=== PATIENT | male | born 1995 | race African-American/Black ===

== ENCOUNTER 2024-11-22 16:26 | Emergency (ER) | payer SELFPAY ==
[~2024-11-22] VITALS: Ht 172.7 cm; Wt 100.0 kg
[2024-11-22 16:40] VITALS: O2SAT 100
[2024-11-22] MEDS: KETOROLAC 30MG/ML VIAL IM ONE (18:00)
[2024-11-22] MEDS: ACETAMINOPHEN 325MG TABLET PO ONE (18:00)
[2024-11-22] MEDS ORDERED: IBUP-2029 MT (18:09)
[2024-11-22 18:31] VITALS: BP 126/68; PULSE 76; RESP 16; TEMP 37; O2SAT 100
== END 2024-11-22 18:57 | disposition home or self-care (01) ==
LOC: ER 16:26
DX: M25.512 Pain in left shoulder (principal); M25.511 Pain in right shoulder; M54.50 Low back pain, unspecified
CPT/HCPCS: 73130; 99283; Z7610